=== PATIENT | male | born 1960 | race Hispanic/Latino ===

== ENCOUNTER → 2019-04-14 | Outpatient (CLI) | payer OTHER | END | disposition home or self-care (01) | LOC: RAH 12:57 | PROVIDERS: ATTEND Family Medicine | DX: N40.0 Benign prostatic hyperplasia without lower urinary tract symptoms (principal); N13.1 Hydronephrosis with ureteral stricture, not elsewhere classified | CPT/HCPCS: 74176 ==

== ENCOUNTER 2019-05-13 07:50 | Day surgery (SDC) | payer OTHER ==
[2019-05-11 10:47] LABS: BASOPHILS % (AUTO) 0.3 % (0.0-5.0); EOSINOPHILS % (AUTO) 3.4 % (0.0-8.0); HEMATOCRIT 44.8 % (42-54); LYMPHOCYTES % (AUTO) 25.4 % (21.0-51.0); MEAN CORPUSCULAR HEMOGLOBIN 27.9 pg (27.0-33.0); MEAN CORPUSCULAR HGB CONC 32.1 g/dL (32.0-36.0); MEAN CORPUSCULAR VOLUME 86.7 fL (79-99); MONOCYTES % (AUTO) 7.9 % (3.0-13.0); NEUTROPHILS % (AUTO) 62.3 % (40.0-77.0); PLATELET COUNT (AUTO) 325 K/uL (130-400); RED BLOOD CELL COUNT(AUTO) 5.17 MIL/uL (4.50-6.20); RED CELL DISTRIBUTION WIDTH 14.4 % (11.0-15.5); WHITE BLOOD COUNT (AUTO) 6.7 K/uL (4.8-10.8)
[2019-05-11 10:48] VITALS: BP 148/84
[2019-05-11 10:56] LABS: CREATININE 0.9 mg/dL (0.5-1.5); POTASSIUM 4.6 mmol/L (3.5-5.1)
[2019-05-11 11:03] LABS: INR 0.91 (0.85-1.15); PARTIAL THROMBOPLASTIN TIME 25.3 SEC (26.3-35.5); PROTHROMBIN TIME 9.6 SEC (9.6-11.6)
--- NOTE | 2019-05-11 11:10 | NUR ---
ekg ekg reported to dr. martin , message left on his cell phone, pending call back
[2019-05-11 11:14] LABS: BILIRUBIN,URINE Negative (NEGATIVE); COLOR,URINE Yellow (YELLOW); GLUCOSE, URINE (UA) Negative (NEGATIVE); KETONES,URINE Negative (NEGATIVE); LEUKOCYTE ESTERASE ,URINE Small (NEGATIVE); NITRATE,URINE Negative (NEGATIVE); OCCULT BLOOD,URINE Moderate (NEGATIVE); PH,URINE 6.5 (5.0-8.0); PROTEIN,URINE POS 1+ mg/dL (NEGATIVE); UROBILINOGEN,URINE 0.2 mg/dL (0.2-1.0)
[2019-05-11 11:29] LABS: APPEARANCE,URINE SLIGHTLY CLOUDY (CLEAR)
[2019-05-11 12:21] LABS: BACTERIA,URINE Rare /HPF (None Seen); SQUAMOUS EPITHELIAL CELL,UR 0-2 /HPF (0-2); URIC ACID CRYSTALS,URINE Few /LPF (None Seen)
--- NOTE | 2019-05-11 12:51 | NUR ---
ekg as per dr. mario aragon to proceed with surgery , no further orders given
--- NOTE | 2019-05-12 17:29 | NUR ---
ABNORMAL UA ABNORMAL UA FAXED TO OFFICE EARLIER, NO FURTHER ORDERS PER DR. TEMPLE.
[2019-05-13] VITALS (13 sets, daily range): BP systolic 145–172; BP diastolic 80–112
[~2019-05-13] VITALS: Ht 172.7 cm; Wt 73.2 kg
[2019-05-13] MEDS: CEFTRIAXONE SODIUM 1 GM IVP SCH ×2 (06:00→11:55)
[~2019-05-13 07:50] MED LIST: GENTAMICIN SULFATE 360 MG in SODIUM CHLORIDE 0.9% 100 ML IV SCH; LEVO500T2 PO; TAMS-1 PO
[2019-05-13] MEDS ORDERED: LACTATED RINGERS 1000ML 1,000 ML IV ONE (09:05)
[2019-05-13] MEDS ORDERED: PROPOFOL 10 MG/ML 20ML VIAL IV ONE (11:32)
[2019-05-13] MEDS ORDERED: MIDAZOLAM HCL 1 MG/ML 2ML VIAL ONE (11:32)
[2019-05-13] MEDS ORDERED: LIDOCAINE PF 2% 5ML ABBOJECT ONE (11:32)
[2019-05-13] MEDS ORDERED: DEXAMETHASONE SOD PHOSPHATE 10MG/ML 1ML VIAL ONE (11:33)
[2019-05-13] MEDS ORDERED: ONDANSETRON HCL 4 MG/2 ML VIAL ONE (11:33)
[2019-05-13] MEDS ORDERED: ROCURONIUM 10MG/1ML SYR 10 MG/ML ML ONE (11:33)
[2019-05-13] MEDS ORDERED: FENTANYL CITRATE PF 50 MCG/1 ML 5ML AMP IV ONE (11:33)
[2019-05-13] MEDS ORDERED: EPHEDRINE SULFATE 50 MG/ML AMPULE ONE (12:11)
[2019-05-13] MEDS ORDERED: GLYCOPYRROLATE 1 MG/5 ML SYRINGE ONE (12:11)
[2019-05-13] MEDS ORDERED: NEOSTIGMINE 5MG/5ML SYR IV ONE (12:11)
[2019-05-13] MEDS ORDERED: MEPERIDINE-PF 25 MG/ML SYG ONE (13:17)
[2019-05-13] MEDS ORDERED: FENTANYL CITRATE PF 50 MCG/1 ML 2ML VIAL ONE (13:34)
== END 2019-05-13 14:52 | disposition home or self-care (01) ==
LOC: DAH 07:50
PROVIDERS: ATTEND Urology
DX: N40.1 Benign prostatic hyperplasia with lower urinary tract symptoms (principal); R33.8 Other retention of urine; I10 Essential (primary) hypertension; Z79.2 Long term (current) use of antibiotics; Z79.899 Other long term (current) drug therapy; Z82.49 Family history of ischemic heart disease and other diseases of the circulatory system; Z83.3 Family history of diabetes mellitus; Z72.89 Other problems related to lifestyle; Z98.890 Other specified postprocedural states
CPT/HCPCS: 36415; 52648; 71045; 80048; 81001; 85025; 85610; 85730; 87077; 87088; 87186; 88305; 93005; A4215; A4221; A4222; A4223; A4354; A4600; A4663; A4930; J0696; J1100; J1580; J2001; J2175; J2250; J2405; J2704; J2710; J3010 ×2; J3490 ×2; J7120 ×2